=== PATIENT | female | born 1960 ===

== ENCOUNTER 2022-10-15 21:11 | Emergency (ER) | payer OTHER ==
[~2022-10-15] VITALS: Ht 170.2 cm; Wt 83.9 kg
[2022-10-15 21:33] VITALS: BP 131/57
== END 2022-10-15 22:37 | disposition home or self-care (01) ==
LOC: ER 21:11
DX: S93.402A Sprain of unspecified ligament of left ankle, initial encounter (principal); W01.0XXA Fall on same level from slipping, tripping and stumbling without subsequent striking against object, initial encounter; Y93.K1 Activity, walking an animal; Z87.891 Personal history of nicotine dependence
CPT/HCPCS: 73610; 73630; 99283-25